=== PATIENT | female | born 1970 | race Caucasian/White ===

== ENCOUNTER 2018-05-01 10:31 | Emergency (ER) | payer SELFPAY ==
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
== END 2018-05-01 12:10 | disposition home or self-care (01) ==
LOC: MW.ED 10:31
DX: L08.9 Local infection of the skin and subcutaneous tissue, unspecified (principal); Z96.642 Presence of left artificial hip joint
CPT/HCPCS: 99282